=== PATIENT | female | born 1935 | race Caucasian/White ===

== ENCOUNTER 2020-08-16 10:24 | Outpatient (CLI) | payer OTHER, BC ==
[~2020-08-16 10:24] MED LIST: ARICEPT 5 MG PO; Coreg PO; HYDRODIURIL PO; INTEGRA PLUS CAPSULE PO; INTESTINEX1 CA1 PO; Namenda 10MG TABLET PO; Norvasc 2.5 MG TAB PO; PRE-PROTEIN (20) PO; Protonix PO; Slow-Mag PO; Synthroid 100MCG TABLET PO; Synthroid 125MCG TABLET PO; ZOLOFT 100 MG PO; Zestril PO
== END 2020-08-16 10:30 | disposition home or self-care (01) ==
LOC: LAB 10:24 → EKG 10:24 → LAB 10:30
PROVIDERS: ATTEND Internal Medicine
DX: R05 Cough (principal); I10 Essential (primary) hypertension

== ENCOUNTER → 2022-06-18 | Outpatient (CLI) | payer OTHER | END | disposition home or self-care (01) | LOC: RAD 12:33 | DX: S52.531A Colles' fracture of right radius, initial encounter for closed fracture (principal) ==